=== PATIENT | female | born 1960 | race Caucasian/White ===

== ENCOUNTER 2023-10-15 16:22 | Emergency (ER) | payer MEDICARE, SELFPAY ==
[2023-10-15] VITALS (15 sets, daily range): BP systolic 104–178; BP diastolic 69–103; PULSE 83–133; RESP 14–18; TEMP 37.3; O2SAT 94–100
--- NOTE | 2023-10-15 16:39 | W.ED.GENAD ---
Discharge Plan Disposition Patient Disposition: Against Medical Advice Condition: Stable Discharge Details Clinical Impression: Facial palsy Primary Care Provider: Unknown,Unknown ED Provider: Alexis Hubbard Home Meds and New Rx's Prescriptions: New valacyclovir 1 gram tablet 1,000 mg PO TID 10 Days Qty: 30 0RF prednisone 20 mg tablet 60 mg PO BID 6 Days Qty: 36 0RF doxycycline hyclate 100 mg capsule 100 mg PO BID 21 Days Qty: 42 0RF No Action Centrum Silver Women 8 mg iron-400 mcg-50 mcg tablet 1 tab PO DAILY Discharge Instructions Instructions: Astorga's palsy, Doxycycline, Prednisone, Valacyclovir, Transient Ischemic Attack ED Additional Instructions: You were seen in the emergency department for your facial palsy, this all came on somewhat insidiously after a possible cardiac event on a hike that you reported some visual changes on. This could be related to any number of illnesses like herpes or shingles though we saw no evidence of either of these infecting your eye or ear with skin lesions, please keep an eye out for these. This could be an unknown tick bite and I am starting you on the medication doxycycline, we gave you IV doxycycline this evening so please start this tomorrow. I am also starting you on the antiviral valacyclovir which will treat empirically for both chickenpox and HSV. I am prescribing you prednisone for your facial palsy. Your CTA showed no signs of major large vessel stroke or occlusion, did show that there is a possible abnormality in the left internal jugular vein of thrombus but this also could have been due to the timing of the IV dye contrast. There is a concern that a very rare type of stroke called a sinus venous thrombosis could be occurring and you declined further studies including telemetry neuro visit and possible CT event [place] fee and admission for possible stroke and MRI tomorrow. Cardiac enzymes are negative as far as damage to the heart though I do not have any prior EKGs to compare your EKG which shows some ST depression in lateral leads to. I recommend you seek urgent evaluation for any changes in headache, seizure-like activity, visual changes, slurred speech or confusion, I recommend that you when you return home to [place] you get baseline cardiac studies including echocardiogram, stress test, ultrasounds of your carotids, talk to your doctor about starting a high-dose statin as well as full dose aspirin and Plavix for concern of transient ischemic attack. You chose to leave AGAINST MEDICAL ADVICE after lengthy discussion about risks of undiagnosed sinus venous thrombosis which is potentially fatal or can cause permanent neurological deficit, if you did have a stroke and you have not progressed in symptoms over the past week this is likely what you will end up with for deficits. Otherwise this is likely to be a Astorga's palsy caused by idiopathic cause and will likely improve slowly over months. Discharge Data Discharge Date/Time-TO BE ENTERED AT DEPARTURE: 10/15/23 22:22 HPI General Date/Time Provider Initiated Documentation: 10/15/23 16:39. HPI Narrative: 63 year-old male presents to ED today by POV/ambulating with her with a chief complaint of facial palsy- has drooping dry L eye, L sided mouth droop, inability to raise L eyebrow, and describes L ear pain behind her ear with onset almost 2 weeks ago. Patient is somewhat of a poor historian with the story changing from 7 days onset to possibly two weeks. Patient was hiking a very strenuous trail in the [facility], felt like she may be having a heart attack- but had some chest discomfort, a very heavy head/headache, and lightning bolts in her vision that did subside eventually- she notes that she may have developed this facial droop after that hike but not an abrupt onset to the severity of facial paralysis she has now. Quality described as facial paralysis only- no continued visual changes or scotoma, denies continued chest discomfort, no radiation to unilateral weakness or numbness, vision loss, slurred speech, confusion. Patient does note that she did have rigors one night during this trip that seemed to be before all the symptoms started. Severity is described as unable to quantify. Palliating factors include nothing specific. Provoking factors include nothing specific. Events leading up to the incident/Associated Symptoms: Patients PCP in [place] urged ED evaluation. Patient denies taking any hormonal prescriptions, denies clot history- endorses her parents of strokes many years ago in their 80s. Denies cardiac history, has never had ECHO/stress testing, takes only supplements. Patient not anticoagulated. Related Data Home Medications Medication Instructions Recorded Confirmed doxycycline hyclate 100 mg capsule 100 mg PO BID 21 days #42 caps 10/15/23 yrzkirgi-hoys-xygl 8 mg-folic 400 1 tab PO DAILY 10/15/23 10/15/23 mcg-K 50 mcg-lutein 300 mcg tablet (Centrum Silver Women) prednisone 20 mg tablet 60 mg (3 x 20 mg) PO BID 6 days 10/15/23 #36 tabs valacyclovir 1 gram tablet 1,000 mg PO TID 10 days #30 tabs 10/15/23 Previous Rx's Medication Instructions Recorded doxycycline hyclate 100 mg capsule 100 mg PO BID 21 days #42 caps 10/15/23 prednisone 20 mg tablet 60 mg (3 x 20 mg) PO BID 6 days 10/15/23 #36 tabs valacyclovir 1 gram tablet 1,000 mg PO TID 10 days #30 tabs 10/15/23 Allergies Allergy/AdvReac Type Severity Reaction Status Date / Time No Known Allergies Allergy Unverified 10/15/23 16:34 General Stated Complaint: GenMedical RODRIGUE: 3 Review of Systems All systems reviewed & are unremarkable except as noted in HPI and below Exam Narrative Exam Narrative: GENERAL APPEARANCE: Well-nourished, non-toxic, awake and alert, atraumatic, no acute distress. SKIN: Warm, pink, dry, intact, without rashes/lesions/ulcerations. HEAD: Normocephalic, atraumatic, normal hair distribution for gender/age. EYES: Pupils PERRLA, EOMs intact without nystagmus or ophthalmoplegia, normal conjunctiva, no exudates on lids/lashes, visual tian intact. ENT: Nares patent, no circumoral cyanosis, no facial swelling, L sided facial droop, sensation intact, no lesions in facial nerve distribution, no vesicular lesions around or in L ear, + L mastoid tenderness, NECK: Supple, trachea midline, painless cervical ROM. LUNGS/CHEST: Lungs CTA bilaterally- no rhonchi/rales/wheezes diffusely, non-labored respirations, normal A/P diameter, symmetrical expansion, no chest wall deformity HEART (CV/PV): Regular rate and rhythm without murmur, no peripheral edema, no JVD. ABDOMEN: Soft, non-distended, no guarding. MSK: Normal ROM, no swelling/deformity to bilateral UEs or LEs, moving all extremities without weakness, no cyanosis, spine midline without tenderness, normal curvature. NEURO: Mental Status AAOx4 - alert to person, place, time, events No facial droop, no forehead involvement, no dysmetria with FNF, heel/almeida. Motor: No focal weakness - strength 5/5 in bilateral UEs and LEs, proximal and distal, symmetric. Facial droop with forehead involvement on L side. Sensory: sensation intact to light touch globally. Gait normal: patient ambulated without ataxia into ED room. PSYCH: euthymic, cooperative, pleasant, appropriate speech Course Vital Signs Vital signs: Vital Signs Temperature 37.3 C 10/15/23 16:28 Pulse 133 H 10/15/23 16:28 Respiratory Rate 18 10/15/23 16:28 Blood Pressure 178/103 H 10/15/23 16:28 Pulse Oximetry 100 10/15/23 16:28 Temperature 37.3 C 10/15/23 16:28 Temperature Source Temporal Artery Scan 10/15/23 16:28 Pulse 133 H 10/15/23 16:28 Respiratory Rate 18 10/15/23 16:28 Blood Pressure 178/103 H 10/15/23 16:28 Pulse Oximetry 100 10/15/23 16:28 Medical Decision Making This dictation utilizes [id number] dictation software and may contain unedited grammatical errors. 63 year-old male presents to ED today by POV/ambulating with her with a chief complaint of facial palsy- has drooping dry L eye, L sided mouth droop, inability to raise L eyebrow, and describes L ear pain behind her ear with onset almost 2 weeks ago. Patient is somewhat of a poor historian with the story changing from 7 days onset to possibly two weeks. Patient was hiking a very strenuous trail in the [facility], felt like she may be having a heart attack- but had some chest discomfort, a very heavy head/headache, and lightning bolts in her vision that did subside eventually- she notes that she may have developed this facial droop after that hike but not an abrupt onset to the severity of facial paralysis she has now. Quality described as facial paralysis only- no continued visual changes or scotoma, denies continued chest discomfort, no radiation to unilateral weakness or numbness, vision loss, slurred speech, confusion. Patient does note that she did have rigors one night during this trip that seemed to be before all the symptoms started. Severity is described as unable to quantify. Palliating factors include nothing specific. Provoking factors include nothing specific. Events leading up to the incident/Associated Symptoms: Patients PCP in [place] urged ED evaluation. Patient denies taking any hormonal prescriptions, denies clot history- endorses her parents of strokes many years ago in their 80s. Denies cardiac history, has never had ECHO/stress testing, takes only supplements. Patients' medical history: Takes only supplements, denies diabetes, denies clot history, denies cardiac history. Family and social history: Exercises and eats well, engaged in lengthy hikes, is currently traveling with her on a camping trip from [place]. Pertinent exam findings / vital signs include L sided facial droop, sensation intact, no lesions in facial nerve distribution, no vesicular lesions around or in L ear, +mastoid tenderness, no focal neurological deficits of LEs or UEs, no slurred speech, benign cardiopulmonary exam. Differential / pathologies of concern include CVA, TIA, Braham Sawyer Syndrome, HSV, Mastoiditis, Viral Syndrome, Tick-Borne Illness, CVT. Diagnostic studies of: -CBC, CRP/ESR, lactate, CMP, procalcitonin, TSH, HSV PCR send out, tick and Lyme panel send out, EKG, troponin I, CTA brain and neck w/ reconstruction for orbits w/wo. -CBC benign -Lactate/procalcitonin negative - do not suspect sepsis -CRP/ESR mildly elevated -TSH WNL -Tick Panel pending -HSV pending -trop negative -CTA shows question of L IJ thrombus, and lack of opacification on initial images of L sigmoid and transverse sinuses -EKG shows lateral ST depressions, suspicious with patients subjective history of her recent possible cardiac event or visual changes and onset of facial droop while hiking Interventions of: -IVF, IV Acyclovir > Rx of PO valacyclovir 1g TID x10 days, 100mg IV doxycycline > 100mg PO BID doxycycline x21 days for empiric Lyme coverage, may discontinue with negative result, 125 IV solu-medrol > 60mg PO prednisone PO x6days. ED Course/Assessment/Plan: 63-year-old female presents with 1 to 2 weeks onset of left-sided facial droop, denies any tick bites but has been hiking in the [facility] and traveling to [place] and [facility]. She endorses a history of chickenpox and has not received shingles vaccine, denies any history of known HSV, she has a Astorga's palsy of the left side of her face with no visual deficits, no signs of vesicular lesions of Qamar Sawyer with expected eruption for this duration of onset. She had question on her CTA of the left IJ thrombus versus contrast timing-question of opacification and some images of the left sigmoid and transverse sinuses, I did discuss that we would like to perform a telemetry neuroconsult for an opinion on admission for her facial palsy with the symptoms and possibly addition of MRI tomorrow, ultrasound of the vessels of the neck, echocardiogram with the history of possible cardiac event she reported 2 weeks ago on her hike with a negative troponin result. The patient initially agreed [place] [facility] [place] and I had planned to perform a CT event [place] fee study to definitively rule out sinus venous thrombosis but the patient wished to leave AGAINST MEDICAL ADVICE I did provide her standard prescriptions for treating Astorga's palsy and covering Lyme disease as well as shingles/herpes provided steroids by prescription to help with facial palsy. I stressed strict return criteria for any further negative changes, I did encourage her to follow-up with her primary care provider soon as possible for complete workup for TIA including MRI, CT venography, baseline cardiac studies, ultrasound of the great vessels of the neck. Findings not consistent with large vessel stroke - patient left AMA prior to TIA admission vs CT venography to defnitively ruleout sinus venous thrombosis. Disposition of Facial Palsy. Patient verbalized understanding of the plan and return to ED criteria and engaged in shared decision making. Medical Records Medical records reviewed: Yes I reviewed the patient's medical records. Imaging Data Radiologic Study: Attestation: I personally reviewed and interpreted this imaging study as follows: Imaging: CT Scan Radiologist's impression: Exam: CTA Head Without And With Contrast, Arteriography Exam date and time: 10/15/2023 6:55 PM Age: 63 years old Clinical indication: Stroke-like symptoms; Other: L facial paralysis, onset 1 week; Additional info: L facial paralysis, onset 1 week. Question bells palsy TECHNIQUE: Imaging protocol: Computed tomographic angiography of the head without and with contrast. Exam focused on the arteries. 3D rendering (Not supervised by radiologist): MIP and/or 3D reconstructed images were created by the technologist. Radiation optimization: All CT scans at this facility use at least one of these dose optimization techniques: automated exposure control; mA and/or kV adjustment per patient size (includes targeted exams where dose is matched to clinical indication); or iterative reconstruction. Contrast material: OMNIPAQUE 350; Contrast volume: 85 ml; Contrast route: INTRAVENOUS (IV); Other technique: STROKE PROTOCOL was implemented. COMPARISON: No relevant prior studies available. FINDINGS: ANTERIOR CIRCULATION: Right internal carotid artery: Intracranial segment is patent with no significant stenosis or occlusion. No aneurysm. Right middle cerebral artery: No occlusion or significant stenosis. No aneurysm. Right anterior cerebral artery: No occlusion or significant stenosis. No aneurysm. Left internal carotid artery: Intracranial segment is patent with no significant stenosis. No aneurysm. Left middle cerebral artery: No occlusion or significant stenosis. No aneurysm. Left anterior cerebral artery: No occlusion or significant stenosis. No aneurysm. POSTERIOR CIRCULATION: Right vertebral artery: No occlusion or significant stenosis. No aneurysm. Left vertebral artery: No occlusion or significant stenosis. No aneurysm. Basilar artery: No occlusion or significant stenosis. No aneurysm. Right posterior cerebral artery: No occlusion or significant stenosis. No aneurysm. Left posterior cerebral artery: No occlusion or significant stenosis. No aneurysm. Veins: Non-opacification the left internal jugular vein. The left sigmoid and transverse sinuses are not opacified on the initial images, but do opacify on delayed images. HEAD: Brain: Normal. No hemorrhage. Unremarkable white matter. No mass effect. Cerebral ventricles: Normal. No ventriculomegaly. Bones: Unremarkable. No acute fracture. Paranasal sinuses: Visualized sinuses are normal. No fluid levels. Mastoid air cells: Visualized mastoids are normal. No mastoid effusion. Soft tissues: Unremarkable. IMPRESSION: 1. No large vessel occlusion. 2. Unremarkable CT head. 3. Non-opacification of the left internal jugular vein, likely secondary to contrast bolus timing. If there is concern for left IJ thrombus recommend correlation with ultrasound. ASSESSMENT: ASPECTS (Kasandra Stroke Program Early CT Score) is 10. PROCEDURE INFORMATION: Exam: CTA Neck Without And With Contrast Exam date and time: 10/15/2023 6:55 PM Age: 63 years old Clinical indication: Stroke-like symptoms; Other: L facial paralysis, onset 1 week; Additional info: L facial paralysis, onset 1 week. Question bells palsy TECHNIQUE: Imaging protocol: Computed tomographic angiography of the neck without and with contrast. Exam focused on the cervical segments of the vasculature. 3D rendering (Not supervised by radiologist): MIP and/or 3D reconstructed images were created by the technologist. Radiation optimization: All CT scans at this facility use at least one of these dose optimization techniques: automated exposure control; mA and/or kV adjustment per patient size (includes targeted exams where dose is matched to clinical indication); or iterative reconstruction. Contrast material: OMNIPAQUE 350; Contrast volume: 85 ml; Contrast route: INTRAVENOUS (IV); COMPARISON: No relevant prior studies available. FINDINGS: Right common carotid artery: No stenosis. No dissection or occlusion. Right internal carotid artery: No stenosis of the extracranial segment. No dissection or occlusion. Right external carotid artery: No occlusion or stenosis of the origin. Left common carotid artery: No stenosis. No dissection or occlusion. Left internal carotid artery: No stenosis of the extracranial segment. No dissection or occlusion. Left external carotid artery: No occlusion or stenosis of the origin. Right vertebral artery: No stenosis. No dissection or occlusion. Left vertebral artery: No stenosis. No dissection or occlusion. Soft tissues: Normal. No significant soft tissue swelling. Bones/joints: No acute fracture. IMPRESSION: No stenosis or occlusion. REFERENCES: NASCET CRITERIA. The degree of stenosis in the cervical segment of the internal carotid artery is based on NASCET criteria. Normal is no stenosis. Mild is less than 50% stenosis. Moderate is 50-69% stenosis. Severe is 70% to 99% stenosis. Total occlusion is no detectable patent lumen. Dictated and Authenticated by: Rena Garcia MD. Lab Data Lab results reviewed: Yes I reviewed the patient's lab results. Labs: 10/15/23 18:21 Blood Blood Culture - Pending 10/15/23 18:21 Blood Blood Culture - Pending Laboratory Tests Range/Units 10/15/23 10/15/23 10/15/23 16:39 17:56 17:56 WBC (4.4-10.8) 10^3/uL 9.18 RBC (3.93-5.22) 10^6/uL 4.30 Hgb (11.2-15.7) g/dL 13.2 Hct (36.0-46.0) % 40.2 MCV (80-95) fL 94 MCH (27.0-33.0) pg 30.7 MCHC (32.0-36.0) % 32.8 RDW (11.7-14.6) % 13.6 Plt Count (130-400) 10^3/uL 388 MPV (8.0-11.0) fL 9.8 Immature Gran % % 0.2 Neutrophils % % 74.0 Lymphocytes % % 17.2 Monocytes % % 6.8 Eosinophils % % 1.0 Basophils % % 0.8 Nucleated RBC % (0.0-0.3) % 0.0 Absolute Neutrophils (1.2-6.7) 10^3/uL 6.80 H Absolute Lymphocytes (1.2-3.4) 10^3/uL 1.58 Absolute Monocytes (0.1-0.8) 10^3/uL 0.62 Absolute Eosinophils (0.0-0.7) 10^3/uL 0.09 Absolute Basophils (0.0-0.2) 10^3/uL 0.07 ESR (0-30) mm/hr 35 H VBG Lactate (0.6-1.4) mmol/L 1.3 Sodium (136-145) mmol/L 140 Potassium (3.5-5.1) mmol/L 4.1 Chloride (98-107) mmol/L 105 Carbon Dioxide (21.0-32.0) mmol/L 25.5 Anion Gap (3-11) mmol/L 9.5 BUN (7-18) mg/dL 20 H Creatinine (0.55-1.02) mg/dL 0.9 Est GFR (CKD-EPI 2020) (mL/min/1.73m2) 70.95 Glucose (74-106) mg/dL 107 H Calcium (8.5-10.1) mg/dL 9.8 Total Bilirubin (0.2-1.0) mg/dL 0.32 AST (15-37) U/L 16 ALT (14-59) U/L 39 Alkaline Phosphatase (46-116) U/L 192 H Troponin I (< or =60) ng/L < 50 Cancelled C-Reactive Protein (<or=0.5) mg/dL 0.98 H Total Protein (6.4-8.2) g/dL 8.0 Albumin (3.4-5.0) g/dL 3.6 Procalcitonin ng/mL 0.2 TSH (0.36-3.74) uIU/mL 2.99 HSV Source Description Cancelled HSV I DNA PCR Cancelled HSV II DNA PCR Cancelled Range/Units 10/15/23 17:56 WBC (4.4-10.8) 10^3/uL RBC (3.93-5.22) 10^6/uL Hgb (11.2-15.7) g/dL Hct (36.0-46.0) % MCV (80-95) fL MCH (27.0-33.0) pg MCHC (32.0-36.0) % RDW (11.7-14.6) % Plt Count (130-400) 10^3/uL MPV (8.0-11.0) fL Immature Gran % % Neutrophils % % Lymphocytes % % Monocytes % % Eosinophils % % Basophils % % Nucleated RBC % (0.0-0.3) % Absolute Neutrophils (1.2-6.7) 10^3/uL Absolute Lymphocytes (1.2-3.4) 10^3/uL Absolute Monocytes (0.1-0.8) 10^3/uL Absolute Eosinophils (0.0-0.7) 10^3/uL Absolute Basophils (0.0-0.2) 10^3/uL ESR (0-30) mm/hr VBG Lactate (0.6-1.4) mmol/L Sodium (136-145) mmol/L Potassium (3.5-5.1) mmol/L Chloride (98-107) mmol/L Carbon Dioxide (21.0-32.0) mmol/L Anion Gap (3-11) mmol/L BUN (7-18) mg/dL Creatinine (0.55-1.02) mg/dL Est GFR (CKD-EPI 2020) (mL/min/1.73m2) Glucose (74-106) mg/dL Calcium (8.5-10.1) mg/dL Total Bilirubin (0.2-1.0) mg/dL AST (15-37) U/L ALT (14-59) U/L Alkaline Phosphatase (46-116) U/L Troponin I (< or =60) ng/L C-Reactive Protein (<or=0.5) mg/dL Total Protein (6.4-8.2) g/dL Albumin (3.4-5.0) g/dL Procalcitonin ng/mL TSH (0.36-3.74) uIU/mL Cancelled HSV Source Description HSV I DNA PCR HSV II DNA PCR Quality:SDOH Health Related Social Needs: No Data to Display PFSH All Active Problems (Updated 10/15/23 @ 21:38 by RAFFAELE Powell) Facial palsy (Acute) Social History Smoking/Tobacco Use Status: Never Smoking risk assessment performed?: Yes Alcohol Intake: never Substance use type: does not use
--- NOTE | 2023-10-15 17:15 | RT.EKG_ITS ---
APPROVED REPORT Exam: Resting ECG Reason for Exam: baseline/screening Patient Location: E HR:103 bpm ECG Measurements Heart Rate 103 AXIS MI 162 P 42 QRSd 89 QRS -15 QT 343 T 111 QTc 449 Conclusion Sinus tachycardia...rate> 99 Abnormal T, consider ischemia, lateral leads...T <-0.20mV, I aVL V5 V6 Narrow complex sinus tachycardia rate of 103. Left axis deviation LVH based on voltage criteria. T wave inversion in leads I, aVL and V6. ST segment depressions in V5 and V6. No prior for comparison . Not meeting occlusion DE criteria.
[2023-10-15] MEDS: methylPREDNISolone SUCC 125 MG VIAL IVP (17:48)
[2023-10-15] MEDS: Normal Saline 1,000 ML 1000 ML IV (17:49)
[2023-10-15] MEDS: DOXYCYCLINE 100 MG in Normal Saline 100 ML IVPB (17:52)
[2023-10-15 18:02] LABS: Lactate 1.3 mmol/L (0.6-1.4)
[2023-10-15 18:04] LABS: Abs Immature Grans 0.02 10^3/uL (0.0-0.06); Absolute Basophil Count 0.07 10^3/uL (0.0-0.2); Absolute Eosinophil Count 0.09 10^3/uL (0.0-0.7); Absolute Lymphocyte Count 1.58 10^3/uL (1.2-3.4); Absolute Monocyte Count 0.62 10^3/uL (0.1-0.8); Basophils % 0.8 %; HCT 40.2 % (36.0-46.0); HGB 13.2 g/dL (11.2-15.7); Immature Grans % 0.2 %; Lymphocytes % 17.2 %; MCH 30.7 pg (27.0-33.0); MCHC 32.8 % (32.0-36.0); MCV 94 fL (80-95); MPV 9.8 fL (8.0-11.0); Monocytes % 6.8 %; Platelet Count 388 10^3/uL (130-400); RDW 13.6 % (11.7-14.6); RDW-SD 46.2 fL; WBC 9.18 10^3/uL (4.4-10.8)
[2023-10-15 18:08] LABS: ESR 35 mm/hr (0-30)
[2023-10-15 18:33] LABS: ALT 39 U/L (14-59); AST 16 U/L (15-37); Albumin 3.6 g/dL (3.4-5.0); Alkaline Phosphatase 192 U/L (46-116); Anion Gap 9.5 mmol/L (3-11); BUN 20 mg/dL (7-18); Bilirubin, Total 0.32 mg/dL (0.2-1.0); C-Reactive Protein 0.98 mg/dL (<or=0.5); CO2 25.5 mmol/L (21.0-32.0); CREATININE 0.9 mg/dL (0.55-1.02); Calcium 9.8 mg/dL (8.5-10.1); Chloride 105 mmol/L (98-107); Estimated GFR 70.95 (mL/min/1.73m2); Glucose 107 mg/dL (74-106); Potassium 4.1 mmol/L (3.5-5.1); Sodium 140 mmol/L (136-145); TSH (W/Ref FT4) 2.99 uIU/mL (0.36-3.74); Troponin I < 50 ng/L (< or =60)
[2023-10-15] MEDS: Omnipaque 350 MG/ML 100 ML BTL 85 ML IJ (18:49)
[2023-10-15] MEDS: Normal Saline - Diluent 50 ML VIAL IJ (18:50)
[2023-10-15] MEDS: Normal Saline Flush 10 ML SYR IVP (18:51)
--- NOTE | 2023-10-15 19:10 | DI.CT_ITS ---
Exam(s) CT BRAIN NECK CTA EXAM: CT BRAIN NECK CTA CLINICAL HISTORY: L facial paralysis, onset 1 week. TECHNIQUE: Imaging Protocol: Axial CT angiography was performed with multi-slice acquisition and mu lti-planar and/or 3D reconstructions. CONTRAST MATERIAL: Intravenous: Omnipaque 350 Contrast volume:structured data in ml COMPARISON: No exams were available for comparison FINDINGS: CTA Neck W: Aortic arch anatomy: The aortic arch anatomy is conventional and there is no significant stenosis at the origin of the great vessels off of the aortic arch. No intimal flap evident. Anterior circulation: Both common carotid arteries ascend with normal luminal diameters. At the level the carotid bulbs and proximal internal carotid arteries there is no plaque on the left side and mild partially calcified plaque on the posterior wall of the right internal carotid artery j ust beyond its origin. There is approximately 10 percent stenosis at this level. Internal carotid a rteries above this level in the upper neck patent, albeit somewhat tortuous on the right side. Posterior circulation: Both vertebral arteries originate in conventional fashion off of the subclavian arteries and there is no obvious stenosis at the origin of the vertebral arteries. Both vertebral arteries exhibit normal luminal diameters within the foramen transversarium. Both vertebral arteries contribute to the formation of the basilar artery at the skull base. CTA Brain W: Anterior circulation: Both internal carotid arteries are patent in the skull base-carotid canals as well as within the cave rnous sinuses. The supraclinoid aspects of the ICAs are patent. Both A1 segments are patent as are the anterior cer ebral arteries and there is no evidence of aneurysm at the level of the anterior communicating artery . Both middle cerebral arteries are patent with no evidence of significant stenosis nor intraluminal th rombus. There also no aneurysms of these vessels. Posterior circulation: The basilar artery ascends in the midline. Distally it gives off patent bilateral superior cerebella r arteries. Above this level the basilar artery terminates as patent bilateral posterior cerebral arteries. There is no evidence of aneurysm at the tip of the basilar artery nor elsewhere in the [id number] is. CT BRAIN: There is no evidence of intracranial hemorrhage, mass effect, or shift of midline structures. There are no extra-axial fluid collections. Ventricles are not enlarged or shifted. There are no ring enh ancing lesions in the brain and no abnormal meningeal enhancement. Paranasal sinuses are clear and there are no effusions in the mastoid air cells. No fluid in the mid dle ear cavities. IMPRESSION: 1. Patent carotid arteries in the neck. No hemodynamically significant stenosis. 2. Patent vertebral arteries. 3. Patent intracranial arteries. 4. No acute intracranial findings. No ring enhancing lesions in the brain nor abnormal meningeal enh ancement. First read by [facility]. RADIATION DOSE DELIVERED: 1,860.32mGy.cm Total DLP DATA REPOSITORY: All CT scans at this facility are submitted to the National Radiology Data Registry (NRDR) Dose Index Registry (DIR) with the [employer] ([employer]). RADIATION OPTIMIZATION: All CT scans at this facility use at least one of these dose optimization te chniques: automated exposure control; mA and/or kV adjustment per patient size (includes targeted exa ms where dose is matched to clinical indication); or iterative reconstruction.
[2023-10-15 19:12] LABS: Procalcitonin 0.2 ng/mL
--- NOTE | 2023-10-15 19:31 | DI.VRAD_ITS ---
PROCEDURE INFORMATION: Exam: CTA Head Without And With Contrast, Arteriography Exam date and time: 10/15/2023 6:55 PM Age: 63 years old Clinical indication: Stroke-like symptoms; Other: L facial paralysis, onset 1 week; Additional info: L facial paralysis, onset 1 week. Question bells palsy TECHNIQUE: Imaging protocol: Computed tomographic angiography of the head without and with contrast. Exam focused on the arteries. 3D rendering (Not supervised by radiologist): MIP and/or 3D reconstructed images were created by the technologist. Radiation optimization: All CT scans at this facility use at least one of these dose optimization techniques: automated exposure control; mA and/or kV adjustment per patient size (includes targeted exams where dose is matched to clinical indication); or iterative reconstruction. Contrast material: OMNIPAQUE 350; Contrast volume: 85 ml; Contrast route: INTRAVENOUS (IV); Other technique: STROKE PROTOCOL was implemented. COMPARISON: No relevant prior studies available. FINDINGS: ANTERIOR CIRCULATION: Right internal carotid artery: Intracranial segment is patent with no significant stenosis or occlusion. No aneurysm. Right middle cerebral artery: No occlusion or significant stenosis. No aneurysm. Right anterior cerebral artery: No occlusion or significant stenosis. No aneurysm. Left internal carotid artery: Intracranial segment is patent with no significant stenosis. No aneurysm. Left middle cerebral artery: No occlusion or significant stenosis. No aneurysm. Left anterior cerebral artery: No occlusion or significant stenosis. No aneurysm. POSTERIOR CIRCULATION: Right vertebral artery: No occlusion or significant stenosis. No aneurysm. Left vertebral artery: No occlusion or significant stenosis. No aneurysm. Basilar artery: No occlusion or significant stenosis. No aneurysm. Right posterior cerebral artery: No occlusion or significant stenosis. No aneurysm. Left posterior cerebral artery: No occlusion or significant stenosis. No aneurysm. Veins: Non-opacification the left internal jugular vein. The left sigmoid and transverse sinuses are not opacified on the initial images, but do opacify on delayed images. HEAD: Brain: Normal. No hemorrhage. Unremarkable white matter. No mass effect. Cerebral ventricles: Normal. No ventriculomegaly. Bones: Unremarkable. No acute fracture. Paranasal sinuses: Visualized sinuses are normal. No fluid levels. Mastoid air cells: Visualized mastoids are normal. No mastoid effusion. Soft tissues: Unremarkable. IMPRESSION: 1. No large vessel occlusion. 2. Unremarkable CT head. 3. Non-opacification of the left internal jugular vein, likely secondary to contrast bolus timing. If there is concern for left IJ thrombus recommend correlation with ultrasound. ASSESSMENT: ASPECTS ([place] Stroke Program Early CT Score) is 10. PROCEDURE INFORMATION: Exam: CTA Neck Without And With Contrast Exam date and time: 10/15/2023 6:55 PM Age: 63 years old Clinical indication: Stroke-like symptoms; Other: L facial paralysis, onset 1 week; Additional info: L facial paralysis, onset 1 week. Question bells palsy TECHNIQUE: Imaging protocol: Computed tomographic angiography of the neck without and with contrast. Exam focused on the cervical segments of the vasculature. 3D rendering (Not supervised by radiologist): MIP and/or 3D reconstructed images were created by the technologist. Radiation optimization: All CT scans at this facility use at least one of these dose optimization techniques: automated exposure control; mA and/or kV adjustment per patient size (includes targeted exams where dose is matched to clinical indication); or iterative reconstruction. Contrast material: OMNIPAQUE 350; Contrast volume: 85 ml; Contrast route: INTRAVENOUS (IV); COMPARISON: No relevant prior studies available. FINDINGS: Right common carotid artery: No stenosis. No dissection or occlusion. Right internal carotid artery: No stenosis of the extracranial segment. No dissection or occlusion. Right external carotid artery: No occlusion or stenosis of the origin. Left common carotid artery: No stenosis. No dissection or occlusion. Left internal carotid artery: No stenosis of the extracranial segment. No dissection or occlusion. Left external carotid artery: No occlusion or stenosis of the origin. Right vertebral artery: No stenosis. No dissection or occlusion. Left vertebral artery: No stenosis. No dissection or occlusion. Soft tissues: Normal. No significant soft tissue swelling. Bones/joints: No acute fracture. IMPRESSION: No stenosis or occlusion. REFERENCES: NASCET CRITERIA. The degree of stenosis in the cervical segment of the internal carotid artery is based on NASCET criteria. Normal is no stenosis. Mild is less than 50% stenosis. Moderate is 50-69% stenosis. Severe is 70% to 99% stenosis. Total occlusion is no detectable patent lumen. Dictated and Authenticated by: Rena Garcia MD. Ordering:ANGELINA Espinoza MD
[2023-10-15] MEDS: Tetracaine 0.5% 4 ML BTL (19:51)
[2023-10-15] MEDS: valACYclovir 1,000 MG TAB 1000 MG PO (21:00)
[2023-10-17 10:07] LABS: Lyme Ab w Rflx to Lyme Confirm Positive (Negative)
[2023-10-18 08:48] LABS: Lyme IgG Ab Positive (Negative); Lyme IgM Ab Positive (Negative)
[2023-10-18 21:23] LABS: HSV 1 PCR, B Negative (Negative); HSV 2 PCR, B Negative (Negative)
[2023-10-18 21:58] LABS: Anaplasma phagocytophilum Negative (Negative); B. miyamotoi PCR Negative (Negative); Babesia divergens/MO-1 Negative (Negative); Babesia duncani Negative (Negative); Babesia microti Negative (Negative); Ehrlichia chaffeensis Negative (Negative); Ehrlichia ewingii/canis Negative (Negative); Ehrlichia muris eauclairensis Negative (Negative)
== END 2023-10-15 22:22 | disposition left against medical advice (07) ==
PROVIDERS: Emergency Provider Physician Assistant
DX: G51.0 Bell's palsy (principal); Z53.29 Procedure and treatment not carried out because of patient's decision for other reasons
CPT/HCPCS: 70496; 70498; 80053; 84145; 85652; 86617; 87040; 87529; 87798; 93005; 96365; 96366; 96368; 96375; 99284; 83605; 84443; 84484; 85025; 86140; 86618; 93010; 99283; J0133; J2919; J3490